=== PATIENT | female | born 1965 | race Two or more races ===

== ENCOUNTER 2025-06-30 08:38 | Inpatient (IN) | payer OTHER ==
[~2025-06-30] VITALS: Ht 167.6 cm; Wt 122.5 kg
[2025-06-30] MEDS ORDERED: TOPROL XL25 M1 PO (09:13)
[2025-06-30] MEDS ORDERED: SYNTHROID50 MCG PO (09:14)
[2025-06-30] MEDS ORDERED: ROSUVASTATIN CAL5 MG PO (09:14)
[2025-06-30] MEDS ORDERED: AVALIDE 300-121 EACH PO (09:14)
[2025-06-30] MEDS ORDERED: RESTORIL30 MG PO (09:15)
[2025-06-30] MEDS ORDERED: MIRTAZAPINE45 M1 PO (09:15)
[2025-06-30] MEDS ORDERED: LORAZEPAM0.5 MG PO (09:15)
[2025-07-06] MEDS ORDERED: CEFTRIAXONE SODIUM 2,000 MG VIAL ONE (07:32)
[2025-07-06] MEDS ORDERED: METRONIDAZOLE/SODIUM CHLORIDE 500 MG/100 ML PIGGYBACK IV ONE (07:32)
[2025-07-06] MEDS ORDERED: LIDOCAINE HCL 1%/EPINEPHRINE 20ML VIAL IJ ONE (07:57)
[2025-07-06] MEDS ORDERED: BUPIVACAINE HCL/Mpf 0.5% 10ML VIAL ONE (07:57)
[2025-07-06] MEDS ORDERED: SUGAMMADEX SODIUM 200 MG/2 ML VIAL IV ONE (13:31)
[2025-07-06] MEDS ORDERED: ONDANSETRON HCL 2 MG/ML VIAL IV PRN (14:15)
[2025-07-06] MEDS ORDERED: OxyCODONE HCL 5 MG TABLET (ROXICODONE) PO PRN (14:15)
[2025-07-06] MEDS ORDERED: MORPHINE SULFATE 4 MG/ML CARTRIDGE IV PRN (14:15)
[2025-07-06] MEDS ORDERED: RINGERS SOLUTION,LACTATED 1,000 ML IV SCH (14:15)
[2025-07-06] MEDS ORDERED: ENALAPRILAT DIHYDRATE 1.25 MG/ML VIAL IV PRN (15:30)
[2025-07-06] MEDS ORDERED: CELECOXIB 200 MG CAPSULE PO SCH (17:00)
[2025-07-06] MEDS ORDERED: SIMETHICONE 125 MG CAPSULE PO SCH (17:00)
[2025-07-06] MEDS ORDERED: HYOSCYAMINE SULFATE 0.125 MG TAB.SUBL SL SCH (17:00)
[2025-07-06] MEDS ORDERED: GABAPENTIN 300 MG CAPSULE PO SCH (17:00)
[2025-07-06] MEDS ORDERED: METOCLOPRAMIDE HCL 5 MG/ML VIAL IV SCH (17:00)
[2025-07-06 17:05] VITALS: BP 125/86; O2SAT 97
[2025-07-06 17:20] LABS: BASO % 0.3 % (0.1-1.2); EOS # 0.00 (0.04-0.54); EOS % 0.0 % (0.7-7.0); LYMPH # 1.03 (1.18-3.74); LYMPH % 8.1 % (19.3-53.1); MEAN PLATELET VOLUME 9.60 fl (9.4-12.4); MONO # 0.65 (0.24-0.82); MONO % 5.1 % (4.7-12.5); NEUT # 11.02 (1.56-6.13); NEUT % 86.2 % (34.0-71.1); RED CELL DISTRIBUTION WIDTH 15.9 % (11.6-14.4)
[2025-07-06] MEDS ORDERED: ACETAMINOPHEN 500 MG GEL..CAP PO SCH (20:00)
[2025-07-06] MEDS ORDERED: PATIENTS OWN MEDICATION (MEDICAMENTO EN PISO) PO SCH (21:00)
[2025-07-06] MEDS ORDERED: FAMOTIDINE/PF 20 MG/2 ML VIAL IV PUSH SCH (21:00)
[2025-07-07 00:29] VITALS: BP 123/84; O2SAT 98
[2025-07-07] MEDS ORDERED: LEVOTHYROXINE SODIUM 50 MCG TABLET PO SCH (06:00)
[2025-07-07 06:29] LABS: BASO % 0.5 % (0.1-1.2); EOS # 0.04 (0.04-0.54); EOS % 0.5 % (0.7-7.0); LYMPH # 1.70 (1.18-3.74); LYMPH % 19.9 % (19.3-53.1); MEAN PLATELET VOLUME 9.60 fl (9.4-12.4); MONO # 0.78 (0.24-0.82); MONO % 9.1 % (4.7-12.5); NEUT # 5.97 (1.56-6.13); NEUT % 69.8 % (34.0-71.1); RED CELL DISTRIBUTION WIDTH 15.2 % (11.6-14.4)
[2025-07-07 07:00] LABS: BUN CREA RATIO 12.0 (7.0-25.0); CREATININE SERUM 0.93 mg/dL (0.55-1.02); GFR 61.09; GLUCOSE FASTING 119.0 mg/dL (65-100); OSMOLALITY SERUM 287.0 MOSM/KG (275-295)
[2025-07-07 07:50] VITALS: BP 110/73; O2SAT 97
[2025-07-07] MEDS ORDERED: LACTULOSE 20 G/30 ML BLIST.PACK PO SCH (09:00)
[2025-07-07] MEDS ORDERED: LACTOBACILLUS ACIDOPHILUS 1 CAP CAP PO SCH (09:00)
[2025-07-07] MEDS ORDERED: METOPROLOL SUCCINATE 25 MG TAB.SR.24H PO SCH (09:00)
[2025-07-07] MEDS ORDERED: IRBESARTAN 150 MG TABLET PO SCH (09:00)
[2025-07-07] MEDS ORDERED: HYDROCHLOROTHIAZIDE 12.5 MG CAPSULE PO SCH (09:00)
[2025-07-07] MEDS ORDERED: TAMSULOSIN HCL 0.4 MG CAP PO STA (13:43)
[2025-07-07 16:55] VITALS: BP 110/75; O2SAT 98
[2025-07-07] MEDS ORDERED: ROSUVASTATIN CALCIUM 10 MG TABLET PO SCH (17:00)
[2025-07-07] MEDS ORDERED: ENOXAPARIN SODIUM 40 MG/0.4 ML SYRINGE SUBCUTANEO SCH (17:00)
[2025-07-07] MEDS ORDERED: TEMAZEPAM 15 MG CAPSULE PO PRN (21:00)
[2025-07-08 00:54] VITALS: BP 126/78; O2SAT 97
[2025-07-08 08:00] VITALS: BP 111/69; O2SAT 96
[2025-07-08] MEDS ORDERED: ENOXAPARIN SODIUM 40 MG/0.4 ML SYRINGE SUBCUTANEO SCH (09:00)
[2025-07-08 12:55] VITALS: O2SAT 98
[2025-07-08 13:19] LABS: BASO % 0.2 % (0.1-1.2); EOS # 0.22 (0.04-0.54); EOS % 2.2 % (0.7-7.0); LYMPH # 1.72 (1.18-3.74); LYMPH % 17.0 % (19.3-53.1); MEAN PLATELET VOLUME 10.10 fl (9.4-12.4); MONO # 0.88 (0.24-0.82); MONO % 8.7 % (4.7-12.5); NEUT # 7.23 (1.56-6.13); NEUT % 71.6 % (34.0-71.1); RED CELL DISTRIBUTION WIDTH 15.8 % (11.6-14.4)
[2025-07-08 14:56] LABS: BUN CREA RATIO 12.0 (7.0-25.0); CREATININE SERUM 0.82 mg/dL (0.55-1.02); GFR 70.64; GLUCOSE FASTING 103.0 mg/dL (65-100); OSMOLALITY SERUM 277.0 MOSM/KG (275-295)
[2025-07-08] MEDS ORDERED: NAPH,MB-DB/K PH,MBDB 1 PKT PACKET PO NR (17:00)
[2025-07-08] MEDS ORDERED: POTASSIUM CHLORIDE 8 MEQ TABLET PO NR (17:00)
[2025-07-08] MEDS ORDERED: TAMSULOSIN HCL 0.4 MG CAP PO SCH (21:00)
== END 2025-07-08 17:35 | disposition home or self-care (01) | DRG 330 ==
LOC: O/R 07-06 06:00 → SURH 07-06 07:00 → SURG 07-06 15:37
PROVIDERS: ADMIT Colon & Rectal Surgery; ATTEND Colon & Rectal Surgery
PROC: 0DBP4ZZ Excision of Rectum, Percutaneous Endoscopic Approach (ICD-10-PCS; 2025-07-06)
PROC: 0DJD8ZZ Inspection of Lower Intestinal Tract, Via Natural or Artificial Opening Endoscopic (ICD-10-PCS; 2025-07-06)
PROC: 0DTN4ZZ Resection of Sigmoid Colon, Percutaneous Endoscopic Approach (ICD-10-PCS; principal; 2025-07-06 07:00)
PROC: 4A12X4Z Monitoring of Cardiac Electrical Activity, External Approach (ICD-10-PCS; 2025-07-07)
DX: K57.32 Diverticulitis of large intestine without perforation or abscess without bleeding (principal); K92.1 Melena; I11.9 Hypertensive heart disease without heart failure; E03.9 Hypothyroidism, unspecified; F41.0 Panic disorder [episodic paroxysmal anxiety]; F32.A Depression, unspecified; E78.00 Pure hypercholesterolemia, unspecified; G47.30 Sleep apnea, unspecified; R73.01 Impaired fasting glucose; E66.9 Obesity, unspecified
CPT/HCPCS: 44207; 44213; 45300; 93228; S2900

== ENCOUNTER 2025-07-14 22:16 | Emergency (ER) | payer OTHER ==
[~2025-07-14] VITALS: Ht 167.6 cm; Wt 122.5 kg
[~2025-07-14 22:16] MED LIST: AVALIDE 300-121 EACH PO; LORAZEPAM0.5 MG PO; MIRTAZAPINE45 M1 PO; RESTORIL30 MG PO; ROSUVASTATIN CAL5 MG PO; SYNTHROID50 MCG PO; TOPROL XL25 M1 PO
--- NOTE | 2025-07-14 22:24 | NUR ---
PTE OPERADO DE DIVERTICULOS REFIERE DOLOR Y SUPORACION NO FETIDA EN AREA AFECTADA.
--- NOTE | 2025-07-14 22:25 | NUR ---
DR. MERCHANT MEDICO QUE REALIZO OPERACION EL 07/06/2025.
[2025-07-14] MEDS ORDERED: BUPROPION XL300 MG PO (22:27)
[2025-07-14 22:31] VITALS: BP 108/74; O2SAT 17
[2025-07-14] MEDS ORDERED: CIPROFLOXACIN IN 5 % DEXTROSE 400 MG/200 ML PIGGYBAG IV STA (23:22)
[2025-07-14] MEDS ORDERED: KETOROLAC TROMETHAMINE 30 MG VIAL IV STA (23:22)
[2025-07-15] MEDS ORDERED: KETOROLAC TROMETHAMINE 30 MG VIAL ONE (00:11)
[2025-07-15] MEDS ORDERED: CIPROFLOXACIN IN 5 % DEXTROSE 400 MG/200 ML PIGGYBAG IV ONE (00:11)
[2025-07-15 00:41] LABS: BASO % 0.2 % (0.1-1.2); EOS # 0.45 (0.04-0.54); EOS % 3.6 % (0.7-7.0); LYMPH # 1.67 (1.18-3.74); LYMPH % 13.5 % (19.3-53.1); MEAN PLATELET VOLUME 9.50 fl (9.4-12.4); MONO # 0.85 (0.24-0.82); MONO % 6.9 % (4.7-12.5); NEUT # 9.32 (1.56-6.13); NEUT % 75.4 % (34.0-71.1); RED CELL DISTRIBUTION WIDTH 14.7 % (11.6-14.4)
--- NOTE | 2025-07-15 00:42 | NUR ---
SE EDUCA SOBRE [place] MEDICO, ESTA REFIERE ENTENDER. SE EXTRAEN MUESTRAS DE LABORATORIO Y SE ADMINISTRAN MEDICAMENTOS VIVIAN ORDEN MEDICA. SE HACE ENTREGA DE ENVASE U/A.
[2025-07-15 01:02] LABS: ALT/SGPT 47.0 U/L (12-78); AST/SGOT 35.0 U/L (15-37); BILIRUBIN TOTAL 0.39 mg/dL (0.3-1.2); BUN CREA RATIO 11.0 (7.0-25.0); CREATININE SERUM 0.85 mg/dL (0.55-1.02); GFR 67.77; GLOBULINA 3.9 G/DL (2.4-3.5); GLUCOSE FASTING 120.0 mg/dL (65-100); OSMOLALITY SERUM 279.0 MOSM/KG (275-295)
[2025-07-15] MEDS ORDERED: POVIDONE-IODINE 118 ML BOTT TOP ONE (03:07)
[2025-07-15] MEDS ORDERED: HYDROGEN PEROXIDE 473 ML BOTTLE TOP ONE (03:08)
[2025-07-15 04:24] LABS: URINE APPEARANCE Clear; URINE BILIRRUBIN Small (NEGATIVE); URINE BLOOD Negative; URINE COLOR Dark Yellow; URINE GLUCOSE Negative (NEGATIVE); URINE KETONE Trace (NEGATIVE); URINE LEUKOCYTE Negative; URINE NITRATE Negative; URINE PROTEIN 30 (NEGATIVE); URINE UROBILINOGEN 1.0 E.U./dl
[2025-07-15 04:31] LABS: URINE BACTERIA 262.7 uL (0.0-1933); URINE CAST 4.10 uL (0.0-1.40); URINE EPITHELIAL CELLS 65.9 uL (0.0-38.8); URINE RBC 4.5 uL (0.0-20.8); URINE WBC 32.1 uL (0.0-23.2)
[2025-07-15 04:58] LABS: URINE MUCUS HEAVY
[2025-07-15] MEDS ORDERED: 0.9 % SODIUM CHLORIDE 1,000 ML IV ONE (05:00)
--- NOTE | 2025-07-15 05:13 | NUR ---
SE ORIENTA PACIENTE SOBRE [place] MEDICO Y ROLLY REFIERE ENTENDER Y ACEPTAR EL MISMO SE PROCEDE A ADMINISTRAR MEDICAMENTO VIVIAN ORDEN MEDICA BAJO MEDIDAS ASEPTICAS.
[2025-07-15] MEDS ORDERED: VANCOMYCIN HCL 1,000 MG VIAL IV SCH (14:35)
[2025-07-15] MEDS ORDERED: METOPROLOL TARTRATE 25 MG TABLET PO SCH (14:37)
[2025-07-15] MEDS ORDERED: HYDROCHLOROTHIAZIDE 12.5 MG CAPSULE PO SCH (14:38)
[2025-07-15] MEDS ORDERED: FAMOTIDINE/PF 20 MG in 0.9 % SODIUM CHLORIDE 8 ML IV PUSH SCH (14:39)
[2025-07-15] MEDS ORDERED: 0.9 % SODIUM CHLORIDE 1,000 ML IV SCH (14:45)
[2025-07-15] MEDS ORDERED: ACETAMINOPHEN 325 MG TABLET PO PRN (14:45)
[2025-07-15] MEDS ORDERED: ENALAPRILAT DIHYDRATE 1.25 MG/ML VIAL IV PRN (15:15)
[2025-07-15] MEDS ORDERED: PIPERACILLIN/TAZOBACTAM SODIUM 3.375 GM in 0.9 % SODIUM CHLORIDE 100 ML IV SCH (15:22)
[2025-07-15] MEDS ORDERED: POTASSIUM CHLORIDE 20MEQ/100ML H2O PB IV ONE (15:30)
[2025-07-15] MEDS ORDERED: ACETAMINOPHEN 500 MG GEL..CAP PO PRN (15:30)
--- NOTE | 2025-07-15 16:30 | NUR ---
NO SE LE REALIZAN ORDENES DE ADMISION DADO A QUE EL TOUS LUEGO DE EVALUARLA LE SADIA DE CLARI.
[2025-07-15] MEDS ORDERED: ENOXAPARIN SODIUM 40 MG/0.4 ML SYRINGE SUBCUTANEO SCH (17:00)
[2025-07-15] MEDS ORDERED: ROSUVASTATIN CALCIUM 10 MG TABLET PO SCH (17:00)
[2025-07-15] MEDS ORDERED: IRBESARTAN 150 MG TABLET PO SCH (17:00)
[2025-07-15] MEDS ORDERED: TEMAZEPAM 15 MG CAPSULE PO SCH (21:00)
[2025-07-16] MEDS ORDERED: LEVOTHYROXINE SODIUM 50 MCG TABLET PO SCH (06:00)
[2025-07-16] MEDS ORDERED: VANCOMYCIN HCL 5 MG/ML REDILUIDO IV SCH (17:00)
== END 2025-07-15 17:25 | disposition home or self-care (01) ==
LOC: ER 22:17 → SEC-K 07-15 17:19 → ER 07-15 17:19 → SEC-K 07-15 17:25
PROVIDERS: General Practice
DX: K91.841 Postprocedural hemorrhage of a digestive system organ or structure following other procedure (principal); E66.9 Obesity, unspecified; I10 Essential (primary) hypertension; E03.9 Hypothyroidism, unspecified